=== PATIENT | female | born 1995 | race Caucasian/White ===

== ENCOUNTER 2021-04-18 19:05 | Emergency (ER) | payer OTHER ==
[~2021-04-18] VITALS: Ht 165.1 cm; Wt 79.7 kg
--- NOTE | 2021-04-18 20:12 | NUR ---
PT AMBULATORY TO ROOM FROM LOBBY.
--- NOTE | 2021-04-18 20:22 | NUR ---
URINE COLLECTED/SENT TO LAB. VS UPDATED IN COMPUTER. CALL LIGHT WITHIN REACH. CALL TO L&D/ TO INQUIRE ABOUT OBTAINING BREAST PUMP.
[2021-04-18] MEDS ORDERED: ONDANSETRON 2MG/ML, 2ML IVPush ONE (20:30)
[2021-04-18] MEDS ORDERED: MORPHINE SULFATE 4 MG/ML, 1ML ONE ×2 (20:37→21:58)
[2021-04-18] MEDS ORDERED: ONDANSETRON 2MG/ML, 2ML ONE (20:37)
[2021-04-18 20:41] LABS: MICROSCOPIC NOT IND
[2021-04-18] MEDS: MORPHINE SULFATE 4 MG/ML, 1ML IVPush PRN ×2 (20:41→21:59)
--- NOTE | 2021-04-18 20:43 | NUR ---
IV PLACED/LABS DRAWN WITH START. PT MEDICATED FOR NAUSEA AND RUQ ABD PAIN RATED 11/10. CALL LIGHT WITHIN REACH, US AT BS.
--- NOTE | 2021-04-18 20:51 | NUR ---
REPORT TO SHAYY DAUGHERTY, TRANSFER OF CARE AT THIS TIME.
[2021-04-18 20:54] LABS: BASOPHILS % (AUTO) 0 % (0-1); EOSINOPHILS % (AUTO) 2 % (1-7); LYMPHOCYTES % (AUTO) 17 % (22-44); MEAN CORPUSCULAR HGB CONC 33.1 g/dL (32.4-35.8); MEAN PLATELET VOLUME 7.9 fL (7.4-10.4); MONOCYTES % (AUTO) 6 % (2-9); NEUTROPHILS % (AUTO) 74 % (42-75); PLATELET COUNT 215 x10^3/uL (130-400); RED BLOOD COUNT 4.58 x10^6/uL (3.82-5.3); RED CELL DISTRIBUTION WIDTH 13.9 % (9.6-15.2)
[2021-04-18] MEDS ORDERED: PLEASE ENTER ALLERGIES MC SCH (21:00)
[2021-04-18 21:05] LABS: ALANINE AMINOTRANSFERASE 27 U/L (12-78); ALBUMIN 4.1 g/dL (3.4-5.0); ANION GAP 6 mmol/L (5-15); CALCIUM 9.2 mg/dL (8.5-10.1); CHLORIDE 104 mmol/L (98-107); CREATININE 0.89 mg/dL (0.55-1.02)
[2021-04-18 21:10] LABS: ALKALINE PHOSPHATASE 101 U/L (45-117); BILIRUBIN,TOTAL 0.5 mg/dL (0.2-1.0); TOTAL PROTEIN 7.7 g/dL (6.4-8.2)
[2021-04-18 21:58] VITALS: BP 129/77
--- NOTE | 2021-04-18 22:11 | NUR ---
Patient given discharge instructions and they have confirmed that they understand the instructions. Patient ambulatory with steady gait. NAD, all questions answered appropriately, denies additional needs at this time. No personal belongings left in room after discharge.
== END 2021-04-18 22:23 | disposition home or self-care (01) ==
LOC: ED 21:35
DX: K80.20 Calculus of gallbladder without cholecystitis without obstruction (principal)
CPT/HCPCS: 36415; 76700; 80053; 81003; 83690; 84703; 85025; 96374; 96375; 96376; 99284; J2270; J2405